=== PATIENT | male | born 1995 | race Native Hawaiian/Other Pacific Islander ===

== ENCOUNTER 2021-01-14 16:05 | Emergency (ER) | payer OTHER ==
[~2021-01-14] VITALS: Ht 180.3 cm; Wt 128.6 kg
[2021-01-14 16:41] VITALS: BP 145/101
[2021-01-14] MEDS ORDERED: CYCL-1 PO (19:35)
[2021-01-14] MEDS ORDERED: ketorolac trometh. 30mg/ml inj. IM ONE (19:40)
[2021-01-14] MEDS ORDERED: acetaminophen 325mg tablet PO ONE (19:40)
== END 2021-01-14 20:17 | disposition home or self-care (01) ==
LOC: ER 16:06
DX: M62.830 Muscle spasm of back (principal); Z88.8 Allergy status to other drugs, medicaments and biological substances; Z79.899 Other long term (current) drug therapy
CPT/HCPCS: 96372; 99283; J1885